=== PATIENT | female | born 1970 | race Caucasian/White ===

== ENCOUNTER 2020-07-29 10:01 | Outpatient (CLI) | payer OTHER, SELFPAY | END 2020-07-29 10:02 | disposition home or self-care (01) | LOC: ANHCOVIDVC 10:01 | PROVIDERS: PCP Family Medicine | DX: Z23 Encounter for immunization (principal) | CPT/HCPCS: 0001A; 91300 ==

== ENCOUNTER 2020-08-19 10:00 | Outpatient (CLI) | payer OTHER, SELFPAY | END 2020-08-19 10:01 | disposition home or self-care (01) | LOC: ANHCOVIDVC 10:01 | PROVIDERS: PCP Family Medicine | DX: Z23 Encounter for immunization (principal) | CPT/HCPCS: 0002A; 91300 ==

== ENCOUNTER 2022-01-28 10:53 | Emergency (ER) | payer OTHER, SELFPAY ==
[2022-01-28 11:03] VITALS: BP 151/93; PULSE 72; RESP 16; TEMP 36.3; O2SAT 100
--- NOTE | 2022-01-28 11:16 | ED.GENADULT ---
HPI - General Adult General Chief complaint: Urogenital-Female Stated complaint: UTI, Body Aches, Multiple Compliants Time Seen by Provider: 01/28/22 11:33 Mode of arrival: ambulatory Limitations: no limitations History of Present Illness HPI narrative: 51-year-old female presents concern for general malaise, dark-colored urine, malodorous urine, fatigue, muscle fatigue. She reports she had been treated with Bactrim for a possible spider bite on her leg, she stopped taking the Bactrim 6 days ago. She reports shortly after that he started having general malaise, urine symptoms started over the weekend. She denies abdominal pain, nausea, vomiting. Reports decreased appetite and feeling of getting full quickly after eating a small amount. She denies back pain, fever, chills, sweats. MD complaint: General malaise Related Data Home Medications Medication Instructions Recorded Confirmed sulfamethoxazole 800 1 tablet PO BID 01/28/22 01/28/22 mg-trimethoprim 160 mg tablet Allergies Allergy/AdvReac Type Severity Reaction Status Date / Time No Known Allergies Allergy Verified 01/28/22 11:19 Review of Systems Review of Systems: CONSTITUTIONAL: Reports malaise, fatigue. Denies chills, sweats, or fever. EYES: Denies visual changes, redness, or discharge. ENT: Denies rhinorrhea, congestion, sinus pain, otalgia or sore throat. CARDIOVASCULAR: Denies chest pain, palpitations, or edema. RESPIRATORY: Denies cough or dyspnea. GASTROINTESTINAL: Denies abdominal pain, nausea, vomiting, diarrhea, bloody, or mucous stools. Reports poor appetite and feeling full quicker GENITOURINARY: Denies dysuria. Reports dark-colored malodorous urine. SKIN: Denies rash or itching. MUSCULOSKELETAL: Denies back pain. Reports myalgia. NEUROLOGIC: Denies numbness, unilateral weakness, or headache. All systems reviewed & are unremarkable except as noted in HPI and below PMFSH Past Medical History Medical History Closed fracture of distal lateral malleolus of left fibula (~12/29/18) Left ankle pain (~12/29/18) Submental lymphadenopathy (~11/21/17) Surgical History Surgical History [place] teeth extracted Family History Family History Father Family history of coronary artery disease Social History Social History Smoking status: Former smoker Second hand tobacco smoke exposure: No Smoking end date: 04/15/16 Alcohol intake: current Drinks per week: 5 Alcohol use details: consumes 5 beers weekly Substance use: never Substance use type: does not use Gender identity (if verbalized by the patient): Female Comments At time of signature, agree with nursing past medical, surgical, social and family history. There is no relevant family history pertinent to the presenting complaint Exam Narrative: GENERAL: Well-appearing, well-nourished, and in no acute distress. HEAD: Normocephalic, atraumatic. EYES: PERRLA, sclera clear, and EOMI. No nystagmus. ENT: Nares clear, turbinates pink, no rhinorrhea or epistaxis. Mucous membranes moist. TM pearly ayala with sharp light reflex bilaterally; no tragal tenderness. Oropharynx without erythema or lesions. Tonsils not enlarged and without exudate. NECK: Supple. No lymphadenopathy. No jugular venous distension, thyromegaly, or carotid bruits. Carotids were easily palpable bilaterally. CHEST: No respiratory distress. Clear to auscultation. No bony deformities, no asymmetry. Speaks in full sentences. HEART: Regular rate and rhythm. No murmur heard. Normal peripheral pulses. ABDOMEN: Soft, nontender, nondistended, normal active bowel sounds, no palpable masses. EXTREMITIES: Normal range of motion. No edema. Normal strength and sensation. SKIN: Warm, dry, no visible rash. NEURO: Alert and or
== END 2022-01-28 11:56 | disposition home or self-care (01) ==
PROVIDERS: Emergency Provider Nurse Practitioner; PCP Family Medicine
DX: R82.90 Unspecified abnormal findings in urine (principal); R53.81 Other malaise; R53.83 Other fatigue; Z87.891 Personal history of nicotine dependence
CPT/HCPCS: 81003; 87086; 87088; 99213; G0463

== ENCOUNTER 2022-01-30 14:23 | Outpatient (CLI) | payer OTHER, SELFPAY ==
[2022-01-30 19:56] LABS: Basophils Absolute Auto 0.1 K/mm3 (0.0-0.1); Basophils Percent Auto 1.2 % (0.2-1.2); Eosinophils Absolute Auto 0.3 K/mm3 (0-0.3); Eosinophils Percent Auto 5.2 % (0-4.4); Hematocrit 48.3 % (37.0-47.0); Hemoglobin 16.1 g/dL (12.0-15.0); Immature Granulocyte Absolute 0.02 K/mm3 (0.00-0.031); Immature Granulocyte Percent A 0.4 % (0-0.5); Lymphocytes Absolute Auto 1.42 K/mm3 (0.9-3.2); Lymphocytes Percent Auto 28.4 % (18.3-44.2); Mean Corpuscular HGB Conc 33.3 g/dl (32-36); Mean Corpuscular Hemoglobin 31.2 pg (26-34); Mean Corpuscular Volume 93.6 fl (80-100); Mean Platelet Volume 10.3 fl (7.4-10.4); Monocytes Absolute Auto 0.8 K/mm3 (0.1-0.6); Monocytes Percent Auto 15.8 % (2.6-8.5); Neutrophils Absolute Auto 2.5 K/mm3 (1.3-6.7); Platelet Count Result 426 k/mm3 (150-375); Red Blood Count 5.16 M/mm3 (4.2-5.4); Red Cell Distribution Width 13.8 % (11.5-14.5)
[2022-01-30 20:28] LABS: Alanine Aminotransferase 737 U/L (6-35); Albumin Level 4.8 g/dL (3.5-5.1); Alkaline Phosphatase 438 U/L (38-126); Anion Gap 15 mmol/L (8-16); Aspartate Amino Transferase 309 U/L (14-36); Bilirubin,Total 7.6 mg/dL (0.2-1.3); Blood Urea Nitrogen 10 mg/dL (7-17); Calcium 9.8 mg/dL (8.4-10.2); Carbon Dioxide 21 mmol/L (22-30); Chloride 103 mmol/L (98-107); Estimated Glomerular Filt Rate > 60; Glucose 112 mg/dL (65-110); Sodium 139 mmol/L (137-145)
[2022-01-31 09:17] LABS: Hemoglobin A1C 5.5 % (<5.7)
[2022-01-31 09:33] LABS: Hepatitis B Surface Antigen Negative (Negative)
[2022-01-31 09:39] LABS: HAV RESULT Negative (Negative); Hepatitis B Core IgM Result Negative (Negative)
[2022-01-31 09:50] LABS: Hepatitis C Virus Antibody Negative (Negative)
== END 2022-01-30 14:24 | disposition home or self-care (01) ==
LOC: ANHGOSHLAB 14:24
PROVIDERS: PCP Family Medicine; Visit Provider Nurse Practitioner
DX: R93.89 Abnormal findings on diagnostic imaging of other specified body structures (principal); R53.83 Other fatigue; R81 Glycosuria; R74.8 Abnormal levels of other serum enzymes
CPT/HCPCS: 36415; 80053; 80074; 83036; 85025

== ENCOUNTER 2022-01-31 11:55 | Emergency (ER) | payer OTHER, SELFPAY ==
--- NOTE | ~2022-01-31 | US_ITS ---
EXAMINATION: US abdomen limited DATE: 01/31/2022 16:16 INDICATION: Hyperbilirubinemia TECHNIQUE: Multiple grayscale and Doppler ultrasound images of the abdomen were obtained. COMPARISON: None available FINDINGS: The head and body of the pancreas are normal. The pancreatic tail is obscured by bowel gas. The liver is normal with normal echogenicity and echotexture. No surface nodularity. Normal hepatope anamaria flow in the main portal vein. The gallbladder is contracted. The normal common bile duct measures 3 mm. There was no sonographic Rosado sign. IMPRESSION: 1. No sonographic correlate for the patient's symptoms. Reviewed, dictated and finalized at location A.
[2022-01-31 12:04] VITALS: BP 162/89; PULSE 85; RESP 99; TEMP 36.2; O2SAT 99
[2022-01-31 12:29] LABS: Basophils Percent Auto 0.8 % (0.2-1.2); Eosinophils Absolute Auto 0.3 K/mm3 (0-0.3); Eosinophils Percent Auto 6.1 % (0-4.4); Hematocrit 46.5 % (37.0-47.0); Hemoglobin 15.7 g/dL (12.0-15.0); Immature Granulocyte Absolute 0.02 K/mm3 (0.00-0.031); Immature Granulocyte Percent A 0.4 % (0-0.5); Lymphocytes Absolute Auto 1.31 K/mm3 (0.9-3.2); Lymphocytes Percent Auto 24.9 % (18.3-44.2); Mean Corpuscular HGB Conc 33.8 g/dl (32-36); Mean Corpuscular Volume 91.7 fl (80-100); Mean Platelet Volume 9.7 fl (7.4-10.4); Monocytes Absolute Auto 0.7 K/mm3 (0.1-0.6); Monocytes Percent Auto 14.1 % (2.6-8.5); Neutrophils Absolute Auto 2.8 K/mm3 (1.3-6.7); Neutrophils Percent Auto 53.7 % (45.5-73.1); Platelet Count Result 463 k/mm3 (150-375); Red Blood Count 5.07 M/mm3 (4.2-5.4); Red Cell Distribution Width 14.3 % (11.5-14.5); White Blood Count 5.3 K/mm3 (4.5-10.0)
[2022-01-31 12:39] LABS: Alanine Aminotransferase 694 U/L (6-35); Albumin Level 4.6 g/dL (3.5-5.1); Alkaline Phosphatase 385 U/L (38-126); Anion Gap 16 mmol/L (8-16); Aspartate Amino Transferase 309 U/L (14-36); Bilirubin,Total 8.3 mg/dL (0.2-1.3); Blood Urea Nitrogen 10 mg/dL (7-17); Calcium 9.6 mg/dL (8.4-10.2); Carbon Dioxide 25 mmol/L (22-30); Chloride 100 mmol/L (98-107); Estimated CRCL calculation 69 ml/min; Estimated Glomerular Filt Rate > 60; Glucose 121 mg/dL (65-110); Lipase 225 U/L (23-300); Potassium 3.7 mmol/L (3.4-5.0); Sodium 141 mmol/L (137-145)
[2022-01-31 12:49] LABS: Add Urine Microscopic? YES; Appearance Urine Cloudy (Clear); Bacteria Urine Trace /hpf; Bilirubin Urine 2+ (Negative); Blood Urine 1+ (Negative); Budding Yeast Urine Present /hpf; Color Urine Amber (Yellow); Glucose Urine UA Negative (Negative); Ketones Urine Trace mg/dL (Negative); Leukocyte Esterase Ur Negative LEU/UL (Negative); Mucus Urine Heavy /lpf; Nitrate Urine Negative (Negative); Protein Urine 1+ mg/dL (Negative); Specific Grav Ur 1.029 (1.001-1.035); Squamous Epithelial Cell Urine Moderate /hpf (Few); WBC Urine 0-3 /hpf
[2022-01-31 15:01] VITALS: BP 129/82; PULSE 64; RESP 18; O2SAT 99
--- NOTE | 2022-01-31 15:11 | ED.RECABL ---
HPI - Recheck/Abnormal Lab/Rx General Chief Complaint: Recheck/Abnormal Lab/Rx Stated Complaint: high liver enzymes Time Seen by Provider: 01/31/22 15:11 Source: patient and family Mode of arrival: ambulatory Limitations: no limitations History of Present Illness HPI narrative: Patient is a 51-year-old previously healthy female presenting to the emergency department for evaluation of abnormal outpatient testing found by primary care physician this week. Patient was noted to have elevated liver enzymes, bilirubin found on outpatient testing. Patient states that she was referred her by her primary care physician for admission. Patient states that initially, she experienced myalgias, headache, rigors last week. Patient states she was seen at an urgent care 4 days ago for changes in her urine which included urine discoloration and was diagnosed with urinary tract infection and placed on an antibiotic. Patient states that she did take that without improvement in her symptoms. Patient denies any abdominal pain, fever, nausea or vomiting. She denies any postprandial pain. Patient denies any rash, swelling or abdominal distention. Patient reports that her urine continues to be discolored and dark. Patient denies alcohol or drug use. She does not recall the name of the antibiotic that she took. Patient states that prior to all of this she had been seen at an urgent care for potential spider bite, cellulitis and placed on antibiotic, states that she this occurred January 16 and has no lingering symptoms from that. Related Data Home Medications Medication Instructions Recorded Confirmed No Home Medications 01/30/22 01/30/22 Allergies Allergy/AdvReac Type Severity Reaction Status Date / Time No Known Allergies Allergy Verified 01/31/22 14:55 Review of Systems Review of Systems: CONSTITUTIONAL: Denies fever, chills, or sweats. EYES: Denies visual changes, redness, or discharge. ENT: Denies rhinorrhea, congestion, sore throat, or otalgia. CARDIOVASCULAR: Denies chest pain, palpitations, or edema. RESPIRATORY: Denies cough or dyspnea. GASTROINTESTINAL: Denies abdominal pain, nausea, vomiting, or diarrhea. GENITOURINARY: Denies dysuria or hematuria. Patient reports dark-colored urine. SKIN: Denies rash or itching. Patient denies skin changes. MUSCULOSKELETAL: Denies back pain, joint pain, or myalgia. NEUROLOGIC: Denies headache, numbness, or weakness. [facility] Past Medical History Medical History Closed fracture of distal lateral malleolus of left fibula (~12/29/18) Cyst of skin Left ankle pain (~12/29/18) Submental lymphadenopathy (~11/21/17) Surgical History Surgical History [place] teeth extracted Family History Family History Father Family history of coronary artery disease Social History Social History Smoking status: Former smoker Second hand tobacco smoke exposure: No Smoking end date: 04/15/16 Alcohol intake: current Drinks per week: 5 Alcohol use details: consumes 5 beers weekly Substance use: never Substance use type: does not use Gender identity (if verbalized by the patient): Female Has the Lack of Transportation Kept You From Medical Appointments or From Getting Medications?: No Within the Past 12 Months, Were You Worried Whether Your Food Would Run Out Before You Got Money to Buy More?: Never True What is Your Housing Situation Today?: I Have Housing Are You Worried That in the Next 2 Months, You May Not Have Your Own Housing to Live In?: No Do You Have Trouble Paying Your Heating Or Electricity Bill?: No Do You Have Trouble Paying For Medicines?: No Are You Currently Unemployed and Looking for Work?: No Highest Level of Education Completed: High School Diploma/GED
[2022-01-31 16:46] LABS: Bilirubin Direct 4.3 mg/dL (0-0.3); Bilirubin Indirect 1.4 mg/dL (0-1.1)
[2022-01-31 17:03] LABS: SARS-CoV-2 RNA PCR Negative
[2022-01-31 17:15] LABS: Hepatitis B Surface Antigen Negative (Negative)
[2022-01-31 17:21] LABS: HAV RESULT Negative (Negative); Hepatitis B Core IgM Result Negative (Negative)
[2022-01-31 17:33] LABS: Hepatitis C Virus Antibody Negative (Negative)
[2022-01-31 18:36] LABS: Partial Thromboplastin Time 26.8 SECONDS (22.3-36.8); Prothrombin Time 12.4 Seconds (11.1-14.7)
[2022-01-31 19:59] VITALS: BP 163/94; PULSE 60; RESP 18; O2SAT 100
== END 2022-01-31 20:01 | disposition home or self-care (01) ==
PROVIDERS: Emergency Medicine; Emergency Provider Emergency Medicine; PCP Family Medicine
DX: R94.5 Abnormal results of liver function studies (principal); E80.6 Other disorders of bilirubin metabolism; Z20.822 Contact with and (suspected) exposure to COVID-19
CPT/HCPCS: 36415; 76705; 80053; 80074; 81001; 81025; 82248; 83690; 85025; 85610; 85730; 99284; C9803; U0003; U0005

== ENCOUNTER 2022-02-02 09:11 | Outpatient (CLI) | payer OTHER, SELFPAY ==
[2022-02-02 09:27] LABS: Basophils Absolute Auto 0.1 K/mm3 (0.0-0.1); Basophils Percent Auto 0.9 % (0.2-1.2); Eosinophils Absolute Auto 0.4 K/mm3 (0-0.3); Eosinophils Percent Auto 6.9 % (0-4.4); Hematocrit 43.1 % (37.0-47.0); Hemoglobin 14.5 g/dL (12.0-15.0); Immature Granulocyte Absolute 0.01 K/mm3 (0.00-0.031); Immature Granulocyte Percent A 0.2 % (0-0.5); Lymphocytes Absolute Auto 1.66 K/mm3 (0.9-3.2); Lymphocytes Percent Auto 29.4 % (18.3-44.2); Mean Corpuscular HGB Conc 33.6 g/dl (32-36); Mean Corpuscular Hemoglobin 31.3 pg (26-34); Mean Corpuscular Volume 92.9 fl (80-100); Mean Platelet Volume 9.6 fl (7.4-10.4); Monocytes Absolute Auto 0.8 K/mm3 (0.1-0.6); Monocytes Percent Auto 13.5 % (2.6-8.5); Neutrophils Absolute Auto 2.8 K/mm3 (1.3-6.7); Neutrophils Percent Auto 49.1 % (45.5-73.1); Platelet Count Result 426 k/mm3 (150-375); Red Blood Count 4.64 M/mm3 (4.2-5.4); Red Cell Distribution Width 14.8 % (11.5-14.5); White Blood Count 5.7 K/mm3 (4.5-10.0)
[2022-02-02 09:40] LABS: Alanine Aminotransferase 628 U/L (6-35); Albumin Level 4.2 g/dL (3.5-5.1); Alkaline Phosphatase 396 U/L (38-126); Anion Gap 12 mmol/L (8-16); Aspartate Amino Transferase 265 U/L (14-36); Bilirubin Direct 4.3 mg/dL (0-0.3); Bilirubin Indirect 1.5 mg/dL (0-1.1); Bilirubin,Total 8.8 mg/dL (0.2-1.3); Blood Urea Nitrogen 8 mg/dL (7-17); Calcium 9.1 mg/dL (8.4-10.2); Carbon Dioxide 23 mmol/L (22-30); Chloride 103 mmol/L (98-107); Estimated Glomerular Filt Rate > 60; Glucose 112 mg/dL (65-110); Potassium 3.6 mmol/L (3.4-5.0); Sodium 138 mmol/L (137-145)
== END 2022-02-02 09:12 | disposition home or self-care (01) ==
LOC: ANHLAB 09:12
PROVIDERS: PCP Family Medicine; Visit Provider Family Medicine
DX: Z00.00 Encounter for general adult medical examination without abnormal findings (principal); E80.6 Other disorders of bilirubin metabolism; R74.8 Abnormal levels of other serum enzymes; I10 Essential (primary) hypertension
CPT/HCPCS: 36415; 80053; 82248; 85025

== ENCOUNTER 2022-02-09 12:08 | Outpatient (CLI) | payer OTHER, SELFPAY ==
[2022-02-09 12:36] LABS: Basophils Absolute Auto 0.1 K/mm3 (0.0-0.1); Basophils Percent Auto 0.8 % (0.2-1.2); Eosinophils Absolute Auto 0.4 K/mm3 (0-0.3); Hematocrit 41.5 % (37.0-47.0); Hemoglobin 13.8 g/dL (12.0-15.0); Immature Granulocyte Absolute 0.02 K/mm3 (0.00-0.031); Immature Granulocyte Percent A 0.2 % (0-0.5); Lymphocytes Percent Auto 17.3 % (18.3-44.2); Mean Corpuscular HGB Conc 33.3 g/dl (32-36); Mean Corpuscular Hemoglobin 30.7 pg (26-34); Mean Corpuscular Volume 92.2 fl (80-100); Monocytes Percent Auto 11.4 % (2.6-8.5); Neutrophils Absolute Auto 5.7 K/mm3 (1.3-6.7); Neutrophils Percent Auto 65.3 % (45.5-73.1); Platelet Count Result 356 k/mm3 (150-375); Red Cell Distribution Width 16.1 % (11.5-14.5); White Blood Count 8.7 K/mm3 (4.5-10.0)
[2022-02-09 12:48] LABS: INR 0.9; Prothrombin Time 11.8 Seconds (11.1-14.7)
[2022-02-09 13:26] LABS: Iron 141 ug/dL (37-170)
[2022-02-09 13:30] LABS: HIV 1/2 Ab P24 Ag Result Negative (Negative)
[2022-02-09 13:37] LABS: Percent Iron Saturation 38 % (20-50)
[2022-02-09 13:56] LABS: Alanine Aminotransferase 436 U/L (6-35); Albumin Level 4.5 g/dL (3.5-5.1); Alkaline Phosphatase 445 U/L (38-126); Anion Gap 13 mmol/L (8-16); Aspartate Amino Transferase 180 U/L (14-36); Bilirubin,Total 8.8 mg/dL (0.2-1.3); Blood Urea Nitrogen 11 mg/dL (7-17); Calcium 9.4 mg/dL (8.4-10.2); Carbon Dioxide 22 mmol/L (22-30); Chloride 105 mmol/L (98-107); Estimated Glomerular Filt Rate > 60; Glucose 105 mg/dL (65-110); Sodium 140 mmol/L (137-145)
[2022-02-09 16:07] LABS: Hepatitis B Surface Anti Res Negative
[2022-02-12 11:59] LABS: Bilirubin Direct 2.3 mg/dL (0-0.3)
[2022-02-12 18:53] LABS: Hepatitis C Viral RNA PCR <15 IU/mL
[2022-02-13 09:41] LABS: CMV IgG Antibody <0.60 U/mL (<0.60)
[2022-02-13 10:09] LABS: CMV IgM Antibody <30.00 AU/mL (<30.00)
[2022-02-13 19:59] LABS: Ceruloplasmin 48 mg/dL (18-53)
[2022-02-14 05:25] LABS: LKM 1 Antibody <=20.0 U (<=20.0)
[2022-02-14 16:28] LABS: Alpha Fetoprotein Tumor Marker 7.8 ng/mL (<6.1)
[2022-02-14 18:33] LABS: EBV Virus Capsid Ag IgG Ab <18.00 U/mL (<18.00); EBV Virus Capsid Ag IgM Ab <36.00 U/mL (<36.00)
[2022-02-14 22:13] LABS: Actin Antibody (IgG) <20 U (<20)
[2022-02-15 23:02] LABS: Mitochondrial (M2) Ab (IgG) <=20.0 U (<=20.0)
[2022-02-18 13:30] LABS: Gliadin AB, IgG <1.0 U/mL (<15.0); TTG IGA AB <1.0 U/mL (<15.0)
== END 2022-02-09 12:09 | disposition home or self-care (01) ==
PROVIDERS: PCP Family Medicine; Visit Provider Nurse Practitioner
DX: R74.8 Abnormal levels of other serum enzymes (principal); R17 Unspecified jaundice; E80.6 Other disorders of bilirubin metabolism
CPT/HCPCS: 36415; 80048; 80076; 82104; 82105; 82390; 82728; 83516; 83520; 83540; 83550; 84443; 85025; 85610; 86038; 86376; 86644; 86645; 86664; 86665; 86703; 86706; 87522; G0432

== ENCOUNTER 2022-02-23 09:13 | Outpatient (CLI) | payer OTHER, SELFPAY ==
[2022-02-23 09:57] LABS: Hematocrit 39.8 % (37.0-47.0); Hemoglobin 12.9 g/dL (12.0-15.0); Mean Corpuscular HGB Conc 32.4 g/dl (32-36); Mean Corpuscular Hemoglobin 29.9 pg (26-34); Mean Corpuscular Volume 92.3 fl (80-100); Mean Platelet Volume 10.8 fl (7.4-10.4); Platelet Count Result 383 k/mm3 (150-375); Red Blood Count 4.31 M/mm3 (4.2-5.4); Red Cell Distribution Width 15.1 % (11.5-14.5)
[2022-02-23 10:13] LABS: Alanine Aminotransferase 382 U/L (6-35); Albumin Level 4.3 g/dL (3.5-5.1); Alkaline Phosphatase 439 U/L (38-126); Aspartate Amino Transferase 177 U/L (14-36); Bilirubin Direct 0.4 mg/dL (0-0.3); Bilirubin Indirect 1.2 mg/dL (0-1.1); Bilirubin,Total 4.2 mg/dL (0.2-1.3); INR 0.9; Prothrombin Time 11.6 Seconds (11.1-14.7)
== END 2022-02-23 09:14 | disposition home or self-care (01) ==
LOC: ANHLAB 09:14
PROVIDERS: PCP Family Medicine; Visit Provider Nurse Practitioner
DX: K71.9 Toxic liver disease, unspecified (principal); L29.8 Other pruritus; R74.8 Abnormal levels of other serum enzymes
CPT/HCPCS: 36415; 80076; 85027; 85610

== ENCOUNTER 2022-03-12 07:25 | Outpatient (CLI) | payer OTHER, SELFPAY ==
--- NOTE | ~2022-03-12 | MR_ITS ---
EXAMINATION: MR MRCP wo/w con/w 3D wo ind DATE: 03/12/2022 08:40 INDICATION: Abnormal liver function tests. TECHNIQUE: Magnetic resonance imaging (MRI) of the abdomen was performed without and with 14 mL Multi Stefany intravenous contrast. Thick-slab T2-weighted FSE images were obtained for magnetic resonance ch olangiopancreatography (MRCP). Maximum intensity projection 3-D reconstructions of the volumetric francis a were created by the technologist. COMPARISON: Abdomen ultrasound 01/31/2022 FINDINGS: ABDOMEN MRI: The liver, gallbladder, pancreas, spleen, adrenal glands, and left kidney are normal. Th ere is a 1.9 cm cyst in right kidney. There are no dilated loops of bowel. There are no pathologicall y enlarged lymph nodes. There is no free intraperitoneal fluid. ABDOMEN MRCP: The common duct is normal and measures 2 mm. No choledocholithiasis. IMPRESSION: 1. No etiology for abnormal liver function tests. Reviewed, dictated and finalized at location A. CAL COORDINATOR PESTICIDE USE
== END 2022-03-12 07:26 | disposition home or self-care (01) ==
PROVIDERS: PCP Family Medicine; Visit Provider Nurse Practitioner
DX: E80.6 Other disorders of bilirubin metabolism (principal); R17 Unspecified jaundice; R74.8 Abnormal levels of other serum enzymes
CPT/HCPCS: 74183; 76376; A9577

== ENCOUNTER 2022-03-28 10:18 | Outpatient (CLI) | payer OTHER, SELFPAY ==
[2022-03-28 10:58] LABS: Alanine Aminotransferase 174 U/L (6-35); Albumin Level 4.5 g/dL (3.5-5.1); Alkaline Phosphatase 659 U/L (38-126); Aspartate Amino Transferase 133 U/L (14-36); Bilirubin Indirect 0.8 mg/dL (0-1.1); Bilirubin,Total 1.6 mg/dL (0.2-1.3)
== END 2022-03-28 10:19 | disposition home or self-care (01) ==
LOC: ANHLAB 10:19
PROVIDERS: PCP Family Medicine; Visit Provider Nurse Practitioner
DX: K71.9 Toxic liver disease, unspecified (principal)
CPT/HCPCS: 36415; 80076

== ENCOUNTER 2022-05-25 13:48 | Outpatient (CLI) | payer OTHER, SELFPAY ==
[2022-05-25 15:20] LABS: Hemoglobin 15.2 g/dL (12.0-15.0); Mean Corpuscular HGB Conc 33.8 g/dl (32-36); Mean Corpuscular Hemoglobin 31.2 pg (26-34); Mean Corpuscular Volume 92.4 fl (80-100); Mean Platelet Volume 9.2 fl (7.4-10.4); Platelet Count Result 388 k/mm3 (150-375); Red Blood Count 4.87 M/mm3 (4.2-5.4); White Blood Count 5.7 K/mm3 (4.5-10.0)
[2022-05-25 15:31] LABS: Prothrombin Time 12.6 Seconds (11.1-14.7)
[2022-05-25 15:32] LABS: Alanine Aminotransferase 151 U/L (6-35); Albumin Level 4.9 g/dL (3.5-5.1); Alkaline Phosphatase 598 U/L (38-126); Aspartate Amino Transferase 95 U/L (14-36); Bilirubin,Total 0.7 mg/dL (0.2-1.3)
== END 2022-05-25 13:49 | disposition home or self-care (01) ==
LOC: ANHLAB 13:49
PROVIDERS: PCP Family Medicine; Visit Provider Nurse Practitioner
DX: R74.8 Abnormal levels of other serum enzymes (principal); K71.9 Toxic liver disease, unspecified
CPT/HCPCS: 36415; 80076; 85027; 85610

== ENCOUNTER 2022-05-30 06:55 | Day surgery (SDC) | payer OTHER, SELFPAY ==
[2022-04-11 11:33] VITALS: BMI 31.8
[2022-05-17 10:24] VITALS: BMI 25.9
--- NOTE | 2022-05-29 13:38 | WPDANESEPPF ---
Anes - Initial Pre Proc Eval Procedure: Operation Date: 05/30/22 12:30 Proposed Procedures p Screening Colonoscopy - Humberto Pinzon MD Date/Time: 05/29/22 13:38 Surgeon: Humberto Pinzon MD Pre Op Diagnosis: Neoplasm Screening Patient Data Age: 52 Gender: F Height: 1.68 m Weight: 73 kg Allergies Allergy/AdvReac Type Severity Reaction Status Date / Time Sulfa (Sulfonamide AdvReac Severe Other Verified 05/30/22 11:16 Antibiotics) bactrim AdvReac Severe drug Uncoded 05/30/22 11:16 induced liver injury Home Medications Medication Instructions Recorded Confirmed Type No Home Medications 05/17/22 05/30/22 History Patient hx anesthesia problems: none Family hx anesthesia problems: none Results Review: All pre-operative results and documents have been reviewed as part of the pre-operative evaluation. [facility] Past Medical History Medical History Cholestatic pruritus Closed fracture of distal lateral malleolus of left fibula (~12/29/18) Colon cancer screening Cyst of skin Drug-induced liver injury Jaundice Left ankle pain (~12/29/18) Obesity Submental lymphadenopathy (~11/21/17) Surgical History Surgical History [place] teeth extracted Family History Family History Father Family history of coronary artery disease Social History Social History Smoking status: Former smoker Tobacco type: cigarettes Second hand tobacco smoke exposure: No Smoking end date: 04/15/16 Alcohol intake: current Drinks per week: 5 Alcohol use details: consumes 5 beers weekly Substance use: never Substance use type: does not use Lack of Transportation: No Lack of Food: Never True Current Housing: I Have Housing Concerned About Future Housing: No Difficulty Paying Gas/Electric Bills: No Difficulty Paying for Meds: No Currently Unemployed: No Education: High School Diploma/GED Living arrangements: with family Occupation/Education: occupation Gender identity (if verbalized by the patient): Female Spiritual care concerns: No Anes - Eval Final PreProcedure Day of Procedure 05/29/22 13:38 Patient weight: overweight Heart: regular rate and rhythm Lungs: clear to auscultation and normal air movement Airway: Mallampati scale class II Neurological: alert and oriented Last oral intake: >/= 8 hours ASA classification: II Emergent: no Anesthetic plan: proceed Anesthesia type and monitoring: general GIVS Results Review: All pre-operative results and documents have been reviewed as part of the pre-operative evaluation. Informed Consent: The patient's anesthetic plan and its attendant risks and benefits were discussed with the patient/family/POA. Questions were solicited and answers provided to the satisfaction of the patient/family/POA.
[2022-05-30 11:17] VITALS: BP 152/102; PULSE 69; RESP 16; TEMP 36.4; O2SAT 100
[2022-05-30] MEDS: LACTATED RINGERS 1,000 ML 150 ML IV CONT (11:31)
--- NOTE | 2022-05-30 12:07 | PM.HPGS ---
History of Present Illness History of Present Illness Consent: Risks, benefits, and alternatives have been discussed and questions answered. Patient agrees to proceed with procedure. Chief complaint: Neoplasm Screening Narrative: Tyra Oviedo is a 52 year old female here for first screening colonoscopy Review of Systems Constitutional: Constitutional: Denies headache(s) and Denies weakness Eyes: Eyes: Denies blurry vision ENT: Reports Normal hearing present, Denies headache(s) and Denies neck pain Cardiovascular: Cardiovascular: Denies chest pain and Denies dyspnea Respiratory: Respiratory: Denies dyspnea Gastrointestinal: Gastrointestinal: Reports no additional gastrointestinal complaints Genitourinary: Genitourinary: Denies dysuria Musculoskeletal: Musculoskeletal: Denies neck pain Integumentary/Breasts: Skin/Breast: Denies dry skin Neurologic: Reports Normal hearing present, Denies headache(s) and Denies weakness Psychiatric: Psychiatric: Denies anxiety Endocrine: Endocrine: Denies change in body appearance Hematologic/Lymphatic: Hematologic/Lymphatic: Denies easy bleeding Allergic/Immunologic: Allergic/Immunologic: Denies urticaria PMFSH Past Medical History Medical History Cholestatic pruritus Closed fracture of distal lateral malleolus of left fibula (~12/29/18) Colon cancer screening Cyst of skin Drug-induced liver injury Jaundice Left ankle pain (~12/29/18) Obesity Submental lymphadenopathy (~11/21/17) Surgical History Surgical History [place] teeth extracted Family History Family History Father Family history of coronary artery disease Social History Social History Smoking status: Former smoker Tobacco type: cigarettes Second hand tobacco smoke exposure: No Smoking end date: 04/15/16 Alcohol intake: current Drinks per week: 5 Alcohol use details: consumes 5 beers weekly Substance use: never Substance use type: does not use Lack of Transportation: No Lack of Food: Never True Current Housing: I Have Housing Concerned About Future Housing: No Difficulty Paying Gas/Electric Bills: No Difficulty Paying for Meds: No Currently Unemployed: No Education: High School Diploma/GED Living arrangements: with family Occupation/Education: occupation Gender identity (if verbalized by the patient): Female Spiritual care concerns: No Meds Home Medications and Allergies Home Medications Medication Instructions Recorded Confirmed Type No Home Medications 05/17/22 05/30/22 History Allergies Allergy/AdvReac Type Severity Reaction Status Date / Time Sulfa (Sulfonamide AdvReac Severe Other Verified 05/30/22 11:16 Antibiotics) bactrim AdvReac Severe drug Uncoded 05/30/22 11:16 induced liver injury Vital Signs Vital Signs - 24 hr 05/30/22 11:17 Temperature 97.6 F Pulse Rate 69 Respiratory Rate 16 Blood Pressure 152/102 H Pulse Oximetry 100 Oxygen Delivery Room Air Exam Const: General: comfortable and no acute distress HENMT: Face/Nose/Sinus: Normal nares present Eyes: General: appearance normal, both eyes and all related structures Neck: Neck: no JVD Resp: Auscultation: clear to auscultation bilaterally Cardio: Rate: regular rate Rhythm: regular rhythm GI: Inspection: non-distended GI Palp: Yes Soft to palpation Skin: General skin exam: normal color Neuro: General: gait normal Speech: normal speech Extrem: General: normal to inspection Psych: Mental Status: mental status grossly normal Assessment and Plan Assessment and plan (1) Colon cancer screening: Code(s): Z12.11 - Encounter for screening for malignant neoplasm of colon Status: Acute A
[2022-05-30 12:34] VITALS: BP 113/73; PULSE 82; RESP 16; O2SAT 98
[2022-05-30 12:44] VITALS: BP 108/70; PULSE 65; RESP 16; O2SAT 100
--- NOTE | 2022-05-30 12:46 | SUR.PHASEII ---
40; PT AWAKE AND ALERT. TALKATIVE. DRINKING WATER. DENIES PAIN.
[2022-05-30 12:54] VITALS: BP 129/83; PULSE 56; RESP 16; O2SAT 100
--- NOTE | 2022-05-30 14:00 | WPDANESPN ---
Anes - Prog Note Post-Op Date/Time: 05/30/22 14:00 Cardiovascular status: normal Respiratory status: normal Airway patency: baseline Mental status: baseline Post-Op hydration status: normal Vital Signs: Last Vital Signs Temp 36.4 C 05/30/22 11:17 Pulse 56 L 05/30/22 12:54 Resp 16 05/30/22 12:54 BP 129/83 05/30/22 12:54 Pulse Ox 100 05/30/22 12:54 O2 Del Method Room Air 05/30/22 12:54 Pain Score (VAS): 0 I/O: Intake & Output 05/29/22 05/30/22 05/30/22 23:59 07:59 15:59 Intake Total 100 Balance 100 Post-procedural complaints: none Patient Feedback: Patient satisfied with anesthetic care.
== END 2022-05-30 13:08 | disposition home or self-care (01) ==
PROVIDERS: PCP Family Medicine; Visit Provider Internal Medicine Gastroenterology
PROC: 0DJD8ZZ Inspection of Lower Intestinal Tract, Via Natural or Artificial Opening Endoscopic (ICD-10-PCS; CPT 45378; principal; 2022-05-30 12:30)
DX: Z12.11 Encounter for screening for malignant neoplasm of colon (principal)
CPT/HCPCS: 45385

== ENCOUNTER 2022-05-30 09:00 | Outpatient (NON) | payer OTHER, SELFPAY | END 2022-05-30 09:01 | disposition home or self-care (01) | LOC: ANHLAB 05-31 09:39 | PROVIDERS: PCP Family Medicine; Visit Provider Internal Medicine Gastroenterology | DX: K63.5 Polyp of colon (principal) | CPT/HCPCS: 88305 ==

== ENCOUNTER 2022-09-06 07:21 | Outpatient (CLI) | payer OTHER, SELFPAY ==
[2022-09-06 07:52] LABS: Basophils Percent Auto 0.5 % (0.2-1.2); Eosinophils Absolute Auto 0.2 K/mm3 (0-0.3); Eosinophils Percent Auto 5.2 % (0-4.4); Hematocrit 42.9 % (37.0-47.0); Hemoglobin 14.3 g/dL (12.0-15.0); Lymphocytes Absolute Auto 1.43 K/mm3 (0.9-3.2); Mean Corpuscular HGB Conc 33.3 g/dl (32-36); Mean Corpuscular Hemoglobin 31.1 pg (26-34); Mean Corpuscular Volume 93.3 fl (80-100); Monocytes Absolute Auto 0.5 K/mm3 (0.1-0.6); Monocytes Percent Auto 11.2 % (2.6-8.5); Neutrophils Absolute Auto 2.1 K/mm3 (1.3-6.7); Neutrophils Percent Auto 49.1 % (45.5-73.1); Platelet Count Result 354 k/mm3 (150-375); Red Cell Distribution Width 13.5 % (11.5-14.5); White Blood Count 4.2 K/mm3 (4.5-10.0)
[2022-09-06 08:47] LABS: Vitamin D 25 Hydroxy 22.1 ng/mL
[2022-09-06 08:59] LABS: Alanine Aminotransferase 103 U/L (6-35); Albumin Level 4.4 g/dL (3.5-5.1); Alkaline Phosphatase 359 U/L (38-126); Anion Gap 5 mmol/L (8-16); Aspartate Amino Transferase 73 U/L (14-36); Bilirubin,Total 0.8 mg/dL (0.2-1.3); Blood Urea Nitrogen 12 mg/dL (7-17); Calcium 9.2 mg/dL (8.4-10.2); Carbon Dioxide 27 mmol/L (22-30); Chloride 106 mmol/L (98-107); Estimated Glomerular Filt Rate > 60; Glucose 101 mg/dL (65-110); Potassium 4.3 mmol/L (3.4-5.0); Sodium 138 mmol/L (137-145)
[2022-09-06 09:49] LABS: Cholesterol 227 mg/dL (0-200); HDL Direct 85 mg/dL; Triglycerides 82 mg/dL (<150)
[2022-09-06 10:01] LABS: LDL Cholesterol Direct 98 mg/dL
== END 2022-09-06 07:22 | disposition home or self-care (01) ==
PROVIDERS: PCP Family Medicine; Visit Provider Internal Medicine Gastroenterology
DX: R74.8 Abnormal levels of other serum enzymes (principal); E53.8 Deficiency of other specified B group vitamins; E55.9 Vitamin D deficiency, unspecified; Z13.220 Encounter for screening for lipoid disorders; Z13.29 Encounter for screening for other suspected endocrine disorder
CPT/HCPCS: 36415; 80053; 80061; 82248; 82306; 82607; 84443; 85025

== ENCOUNTER 2023-10-10 07:21 | Outpatient (CLI) | payer OTHER, SELFPAY ==
[2023-10-10 07:46] LABS: Basophils Percent Auto 0.7 % (0.2-1.2); Eosinophils Absolute Auto 0.2 K/mm3 (0-0.3); Eosinophils Percent Auto 3.9 % (0-4.4); Hematocrit 42.3 % (37.0-47.0); Hemoglobin 13.8 g/dL (12.0-15.0); Lymphocytes Absolute Auto 1.83 K/mm3 (0.9-3.2); Lymphocytes Percent Auto 31.3 % (18.3-44.2); Mean Corpuscular HGB Conc 32.6 g/dl (32-36); Mean Corpuscular Hemoglobin 30.5 pg (26-34); Mean Corpuscular Volume 93.6 fl (80-100); Mean Platelet Volume 9.2 fl (7.4-10.4); Monocytes Absolute Auto 0.6 K/mm3 (0.1-0.6); Monocytes Percent Auto 10.1 % (2.6-8.5); Neutrophils Absolute Auto 3.2 K/mm3 (1.3-6.7); Platelet Count Result 358 k/mm3 (150-375); Red Blood Count 4.52 M/mm3 (4.2-5.4); Red Cell Distribution Width 13.2 % (11.5-14.5); White Blood Count 5.8 K/mm3 (4.5-10.0)
[2023-10-10 08:00] LABS: Cholesterol 205 mg/dL (0-200); HDL Direct 59 mg/dL; Triglycerides 105 mg/dL (<150)
[2023-10-10 08:10] LABS: LDL Cholesterol Direct 108 mg/dL
[2023-10-10 08:13] LABS: Hemoglobin A1C 5.1 % (<5.7)
[2023-10-13 10:49] LABS: Vitamin D 1,25 (OH)2 Total 21 pg/mL (18-72); Vitamin D2 1,25 (OH)2 <8 pg/mL; Vitamin D3 1,25 (OH)2 21 pg/mL
== END 2023-10-10 07:22 | disposition home or self-care (01) ==
PROVIDERS: PCP Family Medicine; Visit Provider Nurse Practitioner Family
DX: Z00.00 Encounter for general adult medical examination without abnormal findings (principal); D72.819 Decreased white blood cell count, unspecified; E78.5 Hyperlipidemia, unspecified; I10 Essential (primary) hypertension; K71.9 Toxic liver disease, unspecified; R74.8 Abnormal levels of other serum enzymes; R73.03 Prediabetes; E55.9 Vitamin D deficiency, unspecified; Z13.29 Encounter for screening for other suspected endocrine disorder
CPT/HCPCS: 36415; 80061; 82652; 83036; 84443; 85025; 85027

== ENCOUNTER 2023-11-04 15:36 | Outpatient (CLI) | payer OTHER, SELFPAY ==
--- NOTE | ~2023-11-04 | MM_ITS ---
EXAMINATION: MM screening ayanna BI w jac HISTORY: Screening TECHNIQUE: Craniocaudal and mediolateral oblique 3-D tomosynthesis images were obtained and synthetic 2-D images were generated. CAD analysis was submitted and interpreted. COMPARISON: Comparison to multiple prior studies sequentially, with oldest reviewed study dated 12/2014. BREAST PARENCHYMAL COMPOSITION: Dense: The breasts are heterogeneously dense, which may obscure small masses FINDINGS: There is no evidence of suspicious mass, calcification, or architectural distortion to sugg est malignancy in either breast. There has been no suspicious interval change. IMPRESSION: 1. No mammographic evidence of malignancy. 2. Recommend routine screening mammography in one year. BI-RADS Category 1: Negative Reviewed, dictated and finalized at location B.
== END 2023-11-04 15:37 | disposition home or self-care (01) ==
PROVIDERS: PCP Family Medicine; Visit Provider Family Medicine
DX: Z12.31 Encounter for screening mammogram for malignant neoplasm of breast (principal)
CPT/HCPCS: 77063; 77067